=== PATIENT | female | born 1955 | race Caucasian/White ===

== ENCOUNTER 2020-12-08 12:30 | Emergency (ER) | payer MEDICARE, SELFPAY ==
--- NOTE | ~2020-12-08 | XR_ITS ---
EXAMINATION: XR ANKLE, RIGHT XR FOOT, RIGHT CLINICAL INFORMATION: Pain COMPARISON: None TECHNIQUE: 2 views of the right ankle and 2 views of the right foot are obtained. A lateral view of the combined right ankle and foot in large [id number] images also included for a total of 5 views. FINDINGS: The malleoli are intact and the ankle mortise is symmetric. There is no ankle fracture or dislocation or arthropathy. No erosive change. The subtalar joint is unremarkable. The retrocalcaneal recess is preserved. There is small to moderate plantar calcaneal spur. The midfoot and forefoot show no fracture or dislocation. There is a small bunion at medial first MTP. There is no joint narrowing or erosive change. XR/XR foot RT 2V IMPRESSION: 1. No fracture or dislocation right ankle, right foot. 2. Plantar calcaneal spur. 3. Bunion medial first MTP.
--- NOTE | ~2020-12-08 | XR_ITS ---
EXAMINATION: XR ANKLE, RIGHT XR FOOT, RIGHT CLINICAL INFORMATION: Pain COMPARISON: None TECHNIQUE: 2 views of the right ankle and 2 views of the right foot are obtained. A lateral view of the combined right ankle and foot in large [id number] images also included for a total of 5 views. FINDINGS: The malleoli are intact and the ankle mortise is symmetric. There is no ankle fracture or dislocation or arthropathy. No erosive change. The subtalar joint is unremarkable. The retrocalcaneal recess is preserved. There is small to moderate plantar calcaneal spur. The midfoot and forefoot show no fracture or dislocation. There is a small bunion at medial first MTP. There is no joint narrowing or erosive change. XR/XR ankle RT 2V IMPRESSION: 1. No fracture or dislocation right ankle, right foot. 2. Plantar calcaneal spur. 3. Bunion medial first MTP.
[2020-12-08 12:33] VITALS: BP 149/101; PULSE 78; RESP 16; TEMP 36.7; O2SAT 96; BMI 31.8
--- NOTE | 2020-12-08 15:00 | ED.LOWEXIN ---
HPI - Extremity Injury (Lower) General Chief Complaint: Extremity Injury, Lower Stated Complaint: R LEG INJ AND RASH Time Seen by Provider: 12/08/20 15:00 Source: patient Mode of arrival: ambulatory Limitations: no limitations History of Present Illness HPI Narrative: 65 y/o female presenting to the ER from home for evaluation of RLE injury that occurred 6 days ago. She reports hitting her lower leg against a box last week. She has been able to ambulate on her leg but noticed increased swelling and bruising of her lower leg and foot. She is coming to make sure nothing is broken. complaint: leg injury and foot injury Onset (ago): day(s) (6) Type of Injury: blunt Place: home Severity: mild Severity scale (1-10): 4 Relieving factors: rest Exacerbating factors: palpation Context: direct blow Associated symptoms: swelling and ambulatory Other symptoms: none Related Data Previous Rx's Medication Instructions Recorded triamcinolone acetonide 0.1 % 1 appl TOPICAL BID PRN #80 g 12/08/20 topical ointment Allergies Allergy/AdvReac Type Severity Reaction Status Date / Time No Known Allergies Allergy Unverified 12/27/19 15:39 [No Known Allergies*] Review of Systems Review of Systems: Constitutional: No Fever, No Chills Cardiovascular: No Chest Pain, No SOB, No Orthopnea, + Edema Gastrointestinal: No Nausea, No Vomiting, No abdominal Pain Musculoskeletal: No joint pain, No Myalgias Skin: No Skin Lesions, No rash Neuro: No Weakness, No Numbness Psych: No Anxiety/Panic, No Depression Heme/Lymph: + Bruising, No Lymphadenopathy PMFSH Social History Social History Advance Directives: No Advance Directives Information Provided: No Physical Exam Vital Signs: Vital Signs: Last Vital Signs Temp 98.1 F 12/08/20 12:33 Pulse 78 12/08/20 12:33 Resp 16 12/08/20 12:33 BP 149/101 H 12/08/20 12:33 Pulse Ox 96 12/08/20 12:33 Body Mass Index 31.8 Appearance: Alert. Oriented X3. No acute distress. HEENT: normal inspection CVS: Normal heart rate and rhythm. Pulses normal. Respiratory: No respiratory distress. Skin: Skin warm and dry. Normal skin color. Normal skin turgor. No rashes. Extremities: right lower extremity with distal lower leg swelling and ecchymosis anteriorly with tenderness, nonpitting edema into the anterior foot along with ecchymosis on the top of the foot. mild tenderness to distal tibia and lateral malleolus. no calf tenderness or erythema. NV intact distally, 2+ DP pulses. Neuro: Oriented X 3. No motor deficit. No sensory deficit. Ambulates with normal gait. Course Course Course Narrative: 65 y/o female presenting with swelling and bruising of her right lower leg 1 week after minor trauma. She has been on her feet at work and sitting at a desk, unable to elevate her foot. She is ambulating normally. XR's are negative for fracture. Negative Abbey's sign, doubt DVT given ecchymosis are anterior without calf pain. No CP or SOB. Placed in FRACISCO wrap with immediate improvement in pain. Encouraged to elevate, ice and fu with PCP. She will come back to the ER if swelling persists or worsens despite these interventions. Stable for d/c home. Critical Care Time Critical Care Time Critical Care Time: No Discharge Plan Discharge Clinical Impression: Contusion Patient Disposition: Home, Self-Care Instructions: Contusion in Adults (ED) Additional Instructions: Your x-ray today was normal. Rest and elevate your foot when possible. Recommend FRACISCO wrap for support and compression. Use ice several times per day for the next 48 hours. You may bear weight as tolerated. Take Motrin and/or Tylenol as needed for pain. Follow up with your doctor as needed. Prescriptions: New triamcinolone acetonide 0.1 % ointment 1 appl topical BID PRN (Reason: itching) Qty: 80 RF: 0 Stand Alone Forms: Work/School Release
== END 2020-12-08 15:09 | disposition home or self-care (01) ==
PROVIDERS: Emergency Provider Emergency Medicine; PCP Internal Medicine
DX: S80.01XA Contusion of right knee, initial encounter (principal); M25.561 Pain in right knee; M79.671 Pain in right foot; X58.XXXA Exposure to other specified factors, initial encounter; Y93.9 Activity, unspecified; Y92.9 Unspecified place or not applicable; Y99.9 Unspecified external cause status
CPT/HCPCS: 73600; 73620; 99283

== ENCOUNTER 2021-09-30 18:51 | Emergency (ER) | payer MEDICARE, SELFPAY ==
--- NOTE | ~2021-09-30 | XR_ITS ---
EXAMINATION: XR LUMBOSACRAL SPINE CLINICAL INFORMATION: Low back pain COMPARISON: None TECHNIQUE: Three views of the lumbosacral spine. FINDINGS: Transitional vertebra at the lumbosacral junction. Sclerotic degenerative changes the posterior elements of the lower lumbar spine. Bones are otherwise in normal anatomic alignment with no acute fracture or spondylolisthesis. Vertebral body heights are preserved. Bowel gas pattern unremarkable. 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 There is sclerotic degenerative changes the posterior elements of the lower lumbar spine but no acute bony abnormality.
--- NOTE | ~2021-09-30 | XR_ITS ---
EXAMINATION: XR HIP, RIGHT CLINICAL INFORMATION: Right hip pain COMPARISON: None TECHNIQUE: Frontal view the pelvis with coned frontal and frog-leg lateral views of the right hip. FINDINGS: Bones and soft tissues are normal. No fracture. Alignment is anatomic. Hip joint space is maintained. XR/XR hip RT w PEL1V IMPRESSION: No acute fracture or dislocation.
[2021-09-30 19:03] VITALS: BP 170/96; PULSE 60; RESP 18; TEMP 36.7; O2SAT 98; BMI 32.8
[2021-09-30] MEDS: Cyclobenzaprine HCl 10 MG TABLET PO (21:28)
[2021-09-30] MEDS: Lidocaine 4 % Patch ADH..PATCH 1 PATCH TRANSDERMA (21:28)
--- NOTE | 2021-09-30 21:30 | ED_ITS ---
HPI - General Adult General Chief complaint: Back Pain/Injury Stated complaint: right hip pain Time Seen by Provider: 09/30/21 19:50 Source: patient Mode of arrival: ambulatory History of Present Illness HPI narrative: 66-year-old female with no significant past medical history presenting to the ED complaining of right-sided low back/buttock and right hip pain s/p waking up this morning. Admit symptoms have gotten progressively worse, worse with movement and ambulation. Admits to taking meloxicam and extra-strength Tylenol [employer] without relief. Denies known injury, trauma, fall, numbness, tingling, weakness, urinary incontinence/retention, fever Onset (ago): hour(s) Related Data Previous Rx's Medication Instructions Recorded triamcinolone acetonide 0.1 % 1 appl topical BID PRN itching #80 12/08/20 topical ointment grams acetaminophen 500 mg tablet 500 mg PO Q6H PRN fever or pain 09/30/21 (Tylenol Extra Strength) #14 tabs cyclobenzaprine 5 mg tablet 5 mg PO Q8H PRN pain (scale score 09/30/21 7-10) 5 days #14 tabs lidocaine 5 % topical patch 1 patch topical DAILY PRN pain #30 09/30/21 (Lidoderm) ea naproxen 500 mg tablet 500 mg PO BID PRN pain 10 days #20 09/30/21 tabs Allergies Allergy/AdvReac Type Severity Reaction Status Date / Time No Known Allergies Allergy Verified 09/30/21 19:08 [No Known Allergies*] Review of Systems Review of Systems: Constitutional: No Fever, No Chills ENT/Mouth: No Ear Pain, No Nasal Congestion, No sore throat, No Rhinorrhea, No Swallowing Difficulty Cardiovascular: No Chest Pain, No SOB Respiratory: No Cough, No Sputum, No Wheezing Gastrointestinal: No Nausea, No Vomiting, No Diarrhea, No Constipation, No Abdominal pain Genitourinary: No Dysuria, No Urinary Frequency, No Hematuria, No Urinary Incontinence/retention, No Urgency, No Flank Pain Musculoskeletal: + joint pain, No Myalgias, No Joint Swelling Skin: No Skin Lesions, No rash Neuro: No Weakness, No Numbness, No Paresthesias Yes all other systems are reviewed and are negative Neurologic: Denies Sensory deficit (Neuro) PMFSH Past Medical History Attestation statement: The following information was validated with the patient. Social History Social History Advance Directives: No Advance Directives Information Provided: Yes Physical Exam ED Vital Signs: Vital Signs - 24 hr 09/30/21 19:03 Temperature 98.1 F Pulse Rate 60 Respiratory Rate 18 Blood Pressure 170/96 H Pulse Oximetry 98 Oxygen Delivery Method Room Air BMI result Body Mass Index 32.8 Const General: cooperative, healthy appearing and no acute distress Orientation/consciousness: patient oriented x3 Limitations: no limitations HENMT Head: Yes normal to inspection and Yes atraumatic Ears: hearing grossly normal bilaterally General nose exam: Normal external nose present Face and sinus: Yes normal facial exam Eyes General: appearance normal, both eyes and all related structures EOM: EOMs intact bilaterally Neck Neck: Yes normal visual inspection and Yes no meningeal signs Resp Effort & Inspection: normal respiratory effort and no respiratory distress Auscultation: clear to auscultation bilaterally Cardio Rate: regular rate Heart sounds: S1 normal heart sound present and S2 normal heart sound present GI Inspection: Yes normal to inspection Palpation (GI): Soft to palpation, nontender, no guarding and not rigid General: Yes no CVA tenderness Back/Spine/Pelvis Other: No midline thoracic/lumbar spinous tenderness/step-off or deformity. + right- sided lower lumbar MSK/right buttock tenderness. Small erythematous bug bite noted to right buttock without surrounding erythema/cellulitis or streaking. Back: no CVA tenderness Skin Rashes: no rashes Wounds: no wounds Neuro Other: Strength intact throughout. No saddle anesthesia. Sensation intact to light touch. Neurovascular intact distally. Slow steady gait with pain General: patient oriented x3, tone normal, moves all extremities, no meningeal signs and no focal motor deficits Motor exam (neuro): 5/5 motor strength present throughout Sensory Exam: No Sensory deficit (Neuro) Extrem Other: Right hip nontender. Full range of motion intact. Neurovascular intact distally General: Yes normal to inspection Course Course Course Narrative: XR lumbar spine 2-3V IMPRESSION: Transitional vertebra at the lumbosacral junction with likely partial sacralization of L5 on the right. There is sclerotic degenerative changes the posterior elements of the lower lumbar spine but no acute bony abnormality. XR hip RT w PEL1V IMPRESSION: No acute fracture or dislocation. > results discussed with patient including worrisome signs and symptoms and strict return precautions and need close follow-up with PCP and Neurosurgery as needed Medical Decision Making MDM Narrative Medical decision making narrative: 66-year-old female with no significant past medical history presenting to the ED complaining of right-sided low back/buttock and right hip pain s/p waking up this morning. On exam vital signs stable, NAD, nontoxic appearing, physical exam as above, no midline spinous tenderness throughout, no red flag symptoms. Concern for MSK pain/strain vs sciatic vs arthritis. Lower concern for fracture/dislocation, cauda equina/cord compression. Low concern for Lyme disease/septic arthritis Plan: X-rays Medical Records Medical records reviewed: Yes I reviewed the patient's medical records. Lab Data Lab results reviewed: Yes I reviewed the patient's lab results. Discharge Plan Discharge Clinical Impression: Lumbar radiculopathy Patient Disposition: Home, Self-Care Instructions: Acute Low Back Pain (ED), Lumbar Radiculopathy (ED) Additional Instructions: Your pain is likely musculoskeletal Flexeril is a muscle relaxer, take at night as it makes you drowsy, do not drive, drink alcohol, or operate machinery while taking it Naproxen as an anti-inflammatory / pain medication, take with food Lidoderm patches are numbing patches, apply to painful area In addition take Tylenol at home If symptoms persist or worsen, pain becomes unbearable, you developed urinary retention or incontinence, or weakness return to the ED Prescriptions: New lidocaine [Lidoderm] 5 % adhesive patch,medicated 1 patch topical DAILY MDD remove after 12 hours PRN (Reason: pain) Qty: 30 0RF Rx Instructions: leave on most painful area for up to 12 hrs acetaminophen [Tylenol Extra Strength] 500 mg tablet 500 mg PO Q6H PRN (Reason: fever or pain) Qty: 14 0RF naproxen 500 mg tablet 500 mg PO BID PRN (Reason: pain) 10 Days Qty: 20 0RF cyclobenzaprine 5 mg tablet 5 mg PO Q8H PRN (Reason: pain (scale score 7-10)) 5 Days Qty: 14 0RF No Action triamcinolone acetonide 0.1 % ointment 1 appl topical BID PRN (Reason: itching) Qty: 80 0RF Referrals: Tracey Goodwin MD [Primary Care Provider] - 1 week Stand Alone Forms: Work/School Release Interventions: ED Discharge Assessment Last Done: 09/30/21 21:53
== END 2021-09-30 21:54 | disposition home or self-care (01) ==
PROVIDERS: Emergency Provider Internal Medicine; PCP Internal Medicine
DX: M25.551 Pain in right hip (principal); M54.16 Radiculopathy, lumbar region; Z79.899 Other long term (current) drug therapy
CPT/HCPCS: 72100; 73502; 99283